=== PATIENT | female | born 1955 | race Two or more races ===

== ENCOUNTER 2022-01-08 05:40 | Day surgery (SDC) | payer OTHER ==
[~2022-01-08] VITALS: Ht 152.4 cm; Wt 61.2 kg
[~2022-01-08 05:40] MED LIST: ZOCOR20 MG PO
== END 2022-01-08 16:30 | disposition home or self-care (01) ==
LOC: CIR.AMB 05:40
PROVIDERS: ATTEND Surgery Surgery of the Hand
DX: M65.841 Other synovitis and tenosynovitis, right hand (principal); Z20.822 Contact with and (suspected) exposure to COVID-19; Z86.16 Personal history of COVID-19; E78.5 Hyperlipidemia, unspecified